=== PATIENT | female | born 1965 | race Caucasian/White ===

== ENCOUNTER 2018-11-21 12:20 | Emergency (ER) | payer MEDICAID, OTHER ==
[~2018-11-21] VITALS: Ht 167.6 cm; Wt 82.1 kg
[~2018-11-21 12:20] MED LIST: ACET325T45 GTB; ALBU2.5V3 NEB; AMAN100T GTB; ASCO500S2 GTB; BISA10SU58 PR; DOCU-144 GTB; GUAI-637 GTB; HYDR15SO8 GTB; LORA1TAB GTB; MELA3TAB51 GTB; MULT1TAB13 GTB; ONDA4TAB13 GTB; POLY15DR42 BOTH EYES; ZINC220T GTB; [UNRECOGNIZED DRUG - CODE] SC
[2018-11-21 12:25] VITALS: BP 123/67; PULSE 69; RESP 17; Ht 167.6 cm; Wt 82.1 kg
[2018-11-21] MEDS ORDERED: CEPH-443 PO (15:38)
[2018-11-21] MEDS ORDERED: PHEN-538 PO (15:38)
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
== END 2018-11-21 15:57 | disposition home or self-care (01) ==
LOC: FTE 12:20
DX: R35.0 Frequency of micturition (principal)
CPT/HCPCS: 81003; 81025; 87086; Z7502; 99283

== ENCOUNTER 2019-01-10 14:39 | Emergency (ER) | payer OTHER ==
[~2019-01-10] VITALS: Ht 170.2 cm; Wt 90.0 kg
[~2019-01-10 14:39] MED LIST changes: +CEPH-443 PO; +PHEN-538 PO; +SOLI10TA2 PO
[2019-01-10 14:41] VITALS: BP 125/57; PULSE 57; RESP 18; Ht 170.2 cm; Wt 90.0 kg
== END 2019-01-10 17:26 | disposition home or self-care (01) ==
LOC: FTE 14:39
DX: N81.84 Pelvic muscle wasting (principal)
CPT/HCPCS: 81003; 81025; 87086; Z7502; 99283